=== PATIENT | female | born 1955 | race African-American/Black ===

== ENCOUNTER 2025-06-08 10:48 | Outpatient (AMB) | payer MEDICARE, MEDICAID, SELFPAY ==
--- NOTE | 2025-06-08 11:01 | MHC.PC.OV ---
Vital Signs 06/08/25 11:03 06/08/25 11:41 Height 5 ft 3 in Weight 235 lb 4 oz BMI 41.7 BP 136/90 H 128/88 Blood Pressure Location Lt brachial Lt brachial Position Sitting Sitting Respiration 16 Pulse 96 Pulse Source Pulse Oximeter Temp 96.9 F Temp Source Temporal Artery Scan Pulse Oximetry (%) 96 Oxygen Delivery Method Room Air Intake Visit Reasons: New Patient [facility] - see comments Administrative Accountant Required: No Accompanied by: Self / Same As Patient Allergies lisinopril Allergy (Mild, Verified 06/08/25 11:26) Cough Medication List - Last Reconciled 06/08/25 by Bridgette Alfaro MD ascorbate calcium (vitamin C) 500 mg PO .QOD cholecalciferol (vitamin D3) 50 mcg PO .QOD lisinopril-hydrochlorothiazide 20-25 mg 1 tab PO DAILY Tobacco use date assessed: 06/08/25 Fall risk assessment: No Falls in past year Last assessed Fall Risk: 06/08/25 Dental Screening Dental Screen Date: 06/08/25 Did you have a dental visit in the last 12 months?: Yes Did you have a dental problem in the last 6 months where you did not have access to dental care?: No Was dental information given to patient?: Patient has dentist HPI HPI Comments History of Present Illness Details The patient is a 70 year old female presenting to re-establish care and for follow up. Hypertension: The patient has been taking lisinopril-hydrochlorothiazide for hypertension but reports developing a cough. The patient trialed stopping the medication for one day and noted the cough resolved completely. Obesity and Prediabetes: The patient's weight has increased from 229 lbs in December to 235 lbs currently. The patient has a history of borderline diabetes and has not been exercising lately, citing caregiving responsibilities and weather as barriers. Dietary habits include eating salads but also late-night snacking on cheese and crackers. Health Maintenance: The patient is due for a colonoscopy. The patient previously declined a bone density scan. The patient has not received an influenza vaccination for the current season but did receive a pneumonia vaccine previously. Social History: - Exercise: The patient reports not currently exercising or walking, attributing this to caregiving for family and unfavorable weather, but states an intention to resume. Diagnostic Results: - Repeat blood pressure: 128/88 mmHg - Weight: 235 lbs, increased from 229 lbs in December. [facility] Medical History (Updated 06/08/25 @ 18:07 by Bridgette Alfaro MD) Morbid obesity with BMI of 40.0-44.9, adult Impaired fasting glucose Mixed hyperlipidemia DCIS (ductal carcinoma in situ) of breast Primary hypertension Surgical History (Updated 06/07/25 @ 23:19 by Bridgette Alfaro MD) History of tonsillectomy H/O breast biopsy Family History (Updated 06/07/25 @ 23:17 by Bridgette Alfaro MD) Other Diabetes mellitus Esophageal cancer Primary hypertension Social History Housing: House Patient Tobacco Use Status: Never used Tobacco e-Cigarette/Vaping Use: Never Used Current occupational status: retired Questionnaire PHQ-9 Over the last 2 weeks, how often have you been bothered by any of the following problems? 1. Little interest or pleasure in doing things: not at all 2. Feeling down, depressed, or hopeless: not at all 3. Trouble falling or staying asleep, or sleeping too much: not at all 4. Feeling tired or having little energy: not at all 5. Poor appetite or overeating: not at all 6. Feeling bad about yourself - or that you are a failure or have let yourself or your family down: not at all 7. Trouble concentrating on things, such as reading the newspaper or watching television: not at all 8. Moving or speaking so slowly that other people could have noticed. Or the opposite - being so fidgety or restless that you have been moving around a lot more than usual: not at all 9. Thoughts that you would be better off or of hurting yourself in some way: not at all Total score: 0 Depression Screening Interpretation: Negative Depression Screening Done: Yes 52261 - PHQ-9 Billing: Yes Source: Developed by Drs. Steve Olson, Moni Omalley, Ritesh Adamson and colleagues, with an educational wanda from [employer]. Thrive Questionnaire Date Thrive assessed: 06/08/25 I am a: Patient What is your living situation today?: I have a steady place to live Within the past 12 months, did the food you bought not last and you didn't have the money to get more?: Never true Within the past 12 months, did you worry whether your food would run out before you got money to buy more?: Never true Do you have trouble paying for medicines?: No Do you have trouble getting transportation to medical appointments?: No Do you have trouble paying your heating and electricity bill?: No Do you have trouble taking care of your child, family member or friend?: No Do you have trouble with day-to-day activities such as bathing, preparing meals, shopping, managing finances, etc.?: No Are you currently unemployed and looking for a job?: No Are you interested in more education?: No Please select the resources that you would like help with: None Currently or been in a relationship where the following occur: No concerns reported THRIVE Score: 0 AUDIT C Alcohol Use Questionnaire (AUDIT-C) 1. How often do you have a drink containing alcohol?: Never 3. How often do you have six or more drinks on one occasion?: Never Total Score: 0 GINI-7 AMB Questionnaire GINI-7 Date GINI - 7 assessed: 06/08/25 Feeling nervous, anxious, or on edge: 0 = Not at all Not being able to stop or control worryin = Not at all Worrying too much about different things: 0 = Not at all Trouble relaxin = Not at all Being so restless that it is hard to sit still: 0 = Not at all Becoming easily annoyed or irritable: 0 = Not at all Feeling afraid as if something awful might happen: 0 = Not at all Total GINI-7 score (0-4 normal; 5-9 mild; 10-14 moderate; 15-21 severe): 0 Source: Developed by Drs. Steve Olson, Moni Omalley, Ritesh Adamson and colleagues, with an educational wanda from [employer]. Review of Systems Narrative Review of Systems - Constitutional: Reports weight gain. - Respiratory: Reports a cough believed to be secondary to lisinopril, which resolved upon discontinuing the medication for a day. - All other systems reviewed and are negative. Physical exam (Primary Care) Vital Signs: Last Vital Signs Temp 96.9 F 06/08/25 11:03 Pulse 96 06/08/25 11:03 Resp 16 06/08/25 11:03 BP 128/88 06/08/25 11:41 Pulse Ox 96 06/08/25 11:03 Oxygen Delivery Method Room Air 06/08/25 11:03 BMI result Body Mass Index 41.7 Tobacco/Smoking Status: Tobacco use Status Tobacco use date assessed 06/08/25 06/08/25 11:03 Patient Tobacco Use Status Never used Tobacco 06/08/25 11:08 e-Cigarette/Vaping Use Never Used 06/08/25 11:08 PHQ-9: PHQ-9 Score PHQ-9: Total score 0 06/08/25 11:41 Depression Screening Interpretation: Negative Thrive Assessment: Date of Thrive Assessment Date Thrive assessed 06/08/25 06/08/25 11:03 Currently or been in a relationship where the following occur: No concerns reported Narrative Physical Exam - Vitals: Repeat blood pressure is 128/88 mmHg. - Gen: NAD - Lungs: Clear to auscultation bilaterally. - Cardiovascular: Normal rhythm. - Abdomen: Soft, non tender, non-distended, with normal bowel sounds. - Extremities: No lower extremity edema. Coding Level of Care Code Est Pt Level 4 (81598) Complex visit Add On G2211 Diagnoses Primary hypertension I10 Impaired fasting glucose R73.01 Morbid obesity with BMI of 40.0-44.9, adult E66.01; Z68.41 Additional Codes PHQ-9 - 73046 - PHQ-9 Billing: Yes ([id number]) Assessment & Plan Assessment & Plan (1) Primary hypertension: Code(s): I10 - Essential (primary) hypertension Category: Medical (2) Impaired fasting glucose: Code(s): R73.01 - Impaired fasting glucose Category: Medical (3) Morbid obesity with BMI of 40.0-44.9, adult: Code(s): E66.01 - Morbid (severe) obesity due to excess calories; Z68.41 - Body mass index [BMI] 40.0-44.9, adult Category: Medical Plan Assessment and Plan 1. Hypertension - The patient reports a cough secondary to lisinopril. - The plan is to discontinue lisinopril/HCTZ and start losartan/HCTZ 50 mg/12.5 mg one tablet daily. - A follow-up visit is scheduled in 2 weeks to monitor blood pressure on new regimen. 2. Obesity and Prediabetes - The patient shows weight gain and has a history of borderline diabetes. - Counseling was provided on lifestyle modifications including weight loss, resuming walking/exercise, avoiding late-night snacking (ceasing food intake by 6 PM), and monitoring starch intake 3. Health Maintenance - A new referral for a colonoscopy will be placed as the patient is due. - The patient will get influenza vaccine at her pharmacy 4. Labs - The patient will have fasting bloodwork today, including a comprehensive panel, HbA1c, and cholesterol. - A urine test will also be conducted to check for proteinuria and monitor kidney health. Plan - Discontinue lisinopril/HCTZ. - Start losartan/hydrochlorothiazide 50 mg/12.5 mg tablet, one tablet daily by mouth. - Obtain fasting labs today, including comprehensive bloodwork and a urine test for protein. - A referral will be placed with the gastroenterology department for a colonoscopy. - The patient was advised to obtain an influenza vaccine at a pharmacy. - The patient was counseled on lifestyle modifications including weight loss, regular exercise, avoiding eating after 6 PM, and reducing intake of starches Discussion Notes I discussed with the patient the decision to switch from lisinopril/HCTZ to losartan/HCTZ 50 mg/12.5 mg due to the patient experiencing a cough, a known side effect of lisinopril. I explained that the new medication contains a lower dose of the water pill component and that we will monitor for effectiveness and potential side effects like swelling, with the option to adjust the dosage if necessary. We reviewed the patient's weight gain and history of prediabetes, and I provided counseling on the importance of lifestyle modifications including regular exercise, dietary changes to limit starches, and avoiding late-night meals. Patient Instructions - We are stopping your lisinopril-hydrochlorothiazide medication because it is likely causing your cough. - Start taking the new prescription, losartan-hydrochlorothiazide 50/12.5 mg, one pill each day. - Continue your current blood pressure pill until the new one is ready at the pharmacy. - We will send a new referral for you to get a colonoscopy. - Work on losing weight by walking, exercising, and reducing your intake of starchy foods like bread, pasta, rice, - Try to stop eating by 6:00 PM and avoid snacking at night. Orders: Orders Microalbumin, Random (w Creat) Today E78.2 - Mixed hyperlipidemia, I10 - Essential (primary) hypertension, R73.01 - Impaired fasting glucose Hemoglobin A1c Today E78.2 - Mixed hyperlipidemia, I10 - Essential (primary) hypertension, R73.01 - Impaired fasting glucose Comprehensive Met. Panel Today E78.2 - Mixed hyperlipidemia, I10 - Essential (primary) hypertension, R73.01 - Impaired fasting glucose Complete Blood Count Auto Diff Today E78.2 - Mixed hyperlipidemia, I10 - Essential (primary) hypertension, R73.01 - Impaired fasting glucose Lipid Panel Today E78.2 - Mixed hyperlipidemia, I10 - Essential (primary) hypertension, R73.01 - Impaired fasting glucose Referrals Gastroenterology Referral Z12.11 - Encounter for screening for malignant neoplasm of colon Medications: New losartan-hydrochlorothiazide 50-12.5 mg discontinue lisinopril/HCTZ rx 1 tab PO DAILY 90 tabs 2RF
[2025-06-08 11:03] VITALS: BP 136/90; PULSE 96; RESP 16; TEMP 36.1; O2SAT 96; BMI 41.7
[2025-06-08 11:41] VITALS: BP 128/88
== END 2025-06-08 11:47 | disposition home or self-care (01) ==
LOC: HO.HMCHD 10:49
PROVIDERS: PCP Internal Medicine; Visit Provider Internal Medicine
DX: I10 Essential (primary) hypertension (principal); R73.01 Impaired fasting glucose; E66.01 Morbid (severe) obesity due to excess calories; Z68.41 Body mass index [BMI] 40.0-44.9, adult

== ENCOUNTER 2025-06-08 11:50 | Outpatient (REF) | payer MEDICARE, MEDICAID, SELFPAY ==
[2025-06-08 13:34] LABS: MANUAL DIFF FLAG NO
[2025-06-08 13:41] LABS: Hematocrit 41.2 % (37.0-47.0); Hemoglobin 13.3 g/dl (12.0-16.0); Imm Gran Abs Auto 0.01 X10*3/uL (0.00-0.03); Imm Gran Pct Auto 0.1 % (0.0-0.4); Lymphocytes Absolute Auto 3.4 X10*3/uL (1.2-4.9); Mean Corpuscular HGB Conc 32.3 g/dl (31.0-35.0); Mean Corpuscular Hemoglobin 28.9 pg (27.0-33.0); Mean Corpuscular Volume 89.4 fL (80.0-98.0); NRBC Abs Auto 0.000 X10*3/uL (0.0-0.012); NRBC Pct Auto 0.0 /100WBC (0.0-0.2); Platelet Count 279 X10*3/uL (160-400); Red Blood Count 4.61 X10*6/uL (4.20-5.50); White Blood Count 6.7 X10*3/uL (4.8-10.8)
[2025-06-08 14:47] LABS: Alanine Aminotransferase 18 U/L (0-31); Albumin Level 4.3 g/dL (3.5-5.0); Alkaline Phosphatase 44 U/L (39-117); Anion Gap 14 (12-20); Aspartate Amino Transferase 24 U/L (5-31); Blood Urea Nitrogen 18 mg/dL (9-16); Calcium 9.7 mg/dL (8.4-10.2); Carbon Dioxide 27 mmol/L (22-29); Chloride 103 mmol/L (96-108); Cholesterol 207 mg/dL (<200); Estimated Glomerular Filt Rate > 60; HDL Cholesterol 77 mg/dL (>40); Potassium 3.7 mmol/L (3.3-5.1); Sodium 140 mmol/L (135-145); Total Protein 7.6 g/dL (6.5-8.0); Triglycerides 66 mg/dL (<150)
== END 2025-06-08 11:51 | disposition home or self-care (01) ==
LOC: HO.10HDL 11:50
PROVIDERS: Visit Provider Internal Medicine
DX: I10 Essential (primary) hypertension (principal); E78.2 Mixed hyperlipidemia; R73.01 Impaired fasting glucose
CPT/HCPCS: 36415; 80053; 80061; 82043; 82570; 83036; 85025; 96127; 99212

== ENCOUNTER 2025-06-22 12:47 | Outpatient (AMB) | payer MEDICARE, MEDICAID, SELFPAY ==
--- NOTE | 2025-06-22 13:14 | MHC.PC.OV ---
Vital Signs 06/22/25 13:16 06/22/25 13:41 Height 5 ft 3 in Weight 232 lb 8 oz BMI 41.2 BP 144/100 H 138/100 H Blood Pressure Location Lt brachial Lt brachial Position Sitting Sitting Respiration 16 Pulse 73 Pulse Source Pulse Oximeter Temp 96.9 F Temp Source Temporal Artery Scan Pulse Oximetry (%) 97 Oxygen Delivery Method Room Air Intake Visit Reasons: F/U BP Auto Travel Counselor Required: No Accompanied by: Self / Same As Patient Allergies lisinopril Allergy (Mild, Verified 06/22/25 13:15) Cough Medication List - Last Reconciled 06/22/25 by Bridgette Alfaro MD ascorbate calcium (vitamin C) 500 mg PO .QOD cholecalciferol (vitamin D3) 50 mcg PO .QOD losartan-hydrochlorothiazide 50-12.5 mg 1 tab PO DAILY Tobacco use date assessed: 06/08/25 Fall risk assessment: No Falls in past year Last assessed Fall Risk: 06/22/25 Dental Screening Dental Screen Date: 06/08/25 HPI HPI Comments History of Present Illness Details The patient is a 70 year old female presenting for a follow-up visit for hypertension management. Essential Hypertension: The patient's blood pressure medication was changed approximately two weeks ago due to a cough associated with the previous medication. She reports no cough with the new medication and denies side effects such as dizziness. Her previous medication contained 25 mg of a diuretic (water pill), while the new combination pill contains only 12.5 mg. She temporarily stopped taking her vitamin D3 and calcium supplements after starting the new medication but was advised she can resume them. Hyperlipidemia: The patient inquired about methods to lower her cholesterol. Obesity: The patient reports a 3-pound weight loss over the past two weeks after eliminating bread and cheese from her diet. She has also been exercising, including using weights and doing pushups. [facility] Medical History (Updated 06/08/25 @ 18:07 by Bridgette Alfaro MD) Morbid obesity with BMI of 40.0-44.9, adult Impaired fasting glucose Mixed hyperlipidemia DCIS (ductal carcinoma in situ) of breast Primary hypertension Surgical History (Updated 06/07/25 @ 23:19 by Bridgette Alfaro MD) History of tonsillectomy H/O breast biopsy Family History (Updated 12/02/25 @ 23:17 by Bridgette Alfaro MD) Other Diabetes mellitus Esophageal cancer Primary hypertension Social History Housing: House Patient Tobacco Use Status: Never used Tobacco e-Cigarette/Vaping Use: Never Used Current occupational status: retired Questionnaire Thrive Questionnaire Date Thrive assessed: 06/01/25 I am a: Patient What is your living situation today?: I have a steady place to live Within the past 12 months, did the food you bought not last and you didn't have the money to get more?: Never true Within the past 12 months, did you worry whether your food would run out before you got money to buy more?: Never true Do you have trouble paying for medicines?: No Do you have trouble getting transportation to medical appointments?: No Do you have trouble paying your heating and electricity bill?: No Do you have trouble taking care of your child, family member or friend?: No Do you have trouble with day-to-day activities such as bathing, preparing meals, shopping, managing finances, etc.?: No Are you currently unemployed and looking for a job?: No Are you interested in more education?: No Please select the resources that you would like help with: None Currently or been in a relationship where the following occur: No concerns reported THRIVE Score: 0 AUDIT C Alcohol Use Questionnaire (AUDIT-C) 1. How often do you have a drink containing alcohol?: Never 3. How often do you have six or more drinks on one occasion?: Never Total Score: 0 GINI-7 AMB Questionnaire GINI-7 Date GINI - 7 assessed: 06/08/25 Source: Developed by Drs. Steve Olson, Moni Omalley, Ritesh Adamson and colleagues, with an educational wanda from [employer]. Review of Systems Narrative Review of Systems - General: Denies dizziness. - Respiratory: Denies cough. - Cardiovascular: Denies leg swelling. Physical exam (Primary Care) Vital Signs: Last Vital Signs Temp 96.9 F 06/22/25 13:16 Pulse 73 06/22/25 13:16 Resp 16 06/22/25 13:16 BP 138/100 H 06/22/25 13:41 Pulse Ox 97 06/22/25 13:16 Oxygen Delivery Method Room Air 06/22/25 13:16 BMI result Body Mass Index 41.2 Tobacco/Smoking Status: Tobacco use Status Tobacco use date assessed 06/08/25 06/22/25 13:20 Patient Tobacco Use Status Never used Tobacco 06/22/25 13:20 e-Cigarette/Vaping Use Never Used 06/22/25 13:20 Thrive Assessment: Date of Thrive Assessment Date Thrive assessed 06/01/25 06/22/25 13:20 Currently or been in a relationship where the following occur: No concerns reported Narrative Physical Exam - Vitals: Repeat blood pressure was 132/100 mmHg. - Cardiovascular: Normal rhythm. - Respiratory: Lungs are clear to auscultation bilaterally. - Extremities: No leg swelling noted. Coding Level of Care Code Est Pt Level 4 (80868) Add On Problem Visit Only Diagnoses Primary hypertension I10 Mixed hyperlipidemia E78.2 Assessment & Plan Assessment & Plan (1) Primary hypertension: Code(s): I10 - Essential (primary) hypertension Category: Medical (2) Mixed hyperlipidemia: Code(s): E78.2 - Mixed hyperlipidemia Category: Medical Plan Assessment and Plan 1. Essential Hypertension - The patient's diastolic blood pressure is elevated at 100 mmHg on her current regimen of losartan-HCTZ 50-12.5 mg, which she started two weeks ago. - This is likely due to the lower diuretic dose (12.5 mg) compared to her previous medication (25 mg). - To optimize her blood pressure control, an additional 12.5 mg of hydrochlorothiazide (HCTZ) will be prescribed to take along with her current combination pill. - She is instructed to monitor her blood pressure twice daily at home, log the readings, and send them every two weeks. - She will follow up in five weeks to reassess. 2. Hyperlipidemia - The patient was counseled on lifestyle modifications to lower cholesterol. - Recommendations include engaging in at least three hours of moderate-intensity aerobic exercise weekly and adhering to a diet that avoids oily, creamy, and fatty foods, sauces. 3. Obesity - The patient is encouraged for her recent 3-pound weight loss achieved through dietary changes and exercise. - She was informed that continued weight loss could lead to a reduction or discontinuation of her blood pressure and cholesterol medications in the future. 4. Health Maintenance - The patient can resume her vitamin D3 and calcium supplements. - follow up in 5-6 weeks Plan - Continue current losartan-HCTZ 50-12.5 mg medication. - Add a prescription for hydrochlorothiazide (HCTZ) 12.5 mg to be taken with the current medication to increase the total diuretic dose to 25 mg. - Patient advised to take medications with food and ensure adequate hydration, aiming for 64 ounces of water daily. - Patient to monitor blood pressure twice daily at home, maintain a log, and send the readings every two weeks. - Counseled on lifestyle modifications for hyperlipidemia, including 3 hours of weekly moderate-intensity exercise and a low-fat diet. Patient Instructions - Continue taking your current blood pressure pill (losartan/HCTZ). - I am adding a new prescription for a small water pill (hydrochlorothiazide 12.5 mg). Please take one tablet of this new pill along with your current blood pressure pill each day. - Take your medications with food and be sure to drink plenty of water throughout the day, about 64 ounces. Medications: New hydrochlorothiazide 12.5 mg PO DAILY 90 caps 3RF
[2025-06-22 13:16] VITALS: BP 144/100; PULSE 73; RESP 16; TEMP 36.1; O2SAT 97; BMI 41.2
[2025-06-22 13:41] VITALS: BP 138/100
== END 2025-06-22 13:48 | disposition home or self-care (01) ==
LOC: HO.HMCHD 12:47
PROVIDERS: PCP Internal Medicine; Visit Provider Internal Medicine
DX: I10 Essential (primary) hypertension (principal); E78.2 Mixed hyperlipidemia

== ENCOUNTER → 2025-06-22 12:47 | Outpatient (BNVA) | payer MEDICARE, MEDICAID, SELFPAY | PROVIDERS: PCP Internal Medicine; Visit Provider Internal Medicine | DX: I10 Essential (primary) hypertension (principal); E78.2 Mixed hyperlipidemia | CPT/HCPCS: 99212 ==